=== PATIENT | female | born 1950 | race Hispanic/Latino ===

== ENCOUNTER 2018-05-19 14:51 | Emergency (ER) | payer OTHER, MEDICARE ==
[2018-05-19 17:14] LABS: Urine Bacteria <20 /HPF (<20); Urine Culture Reflex Order REFLEXED; Urine RBC TNTC /HPF (NONE SEEN)
--- NOTE | 2018-05-19 17:20 | EDPHYS ---
Physician Documentation [facility] Name: Catrachito Barbosa Age: 68 yrs Sex: Female : 1950 Arrival Date: 05/19/2018 Time: 14:53 Bed 13 Private MD: Robert Phillip V ED Physician Richie Jones HPI: 05/19 17:09 This 68 yrs old Female presents to ER via Ambulatory with complaints of pm1 Urinary Problem. 17:09 Onset: The symptoms/episode began/occurred 3 day(s) ago. Associated signs and symptoms: pm1 Pertinent positives: dysuria, Pertinent negatives: abdominal pain, chest pain, diarrhea, fever, shortness of breath, vomiting, back pain. Modifying factors: The patient symptoms are alleviated by nothing, the patient symptoms are aggravated by urinating. last UTI 4-5 years ago. The patient has not recently seen a physician, the patient's primary care provider is Dr. Phillip. Patient with burning with urination, frequency for the past 3 days. Took Azo and drinking cranberry juice hoping that symptoms with resolve. No fevers, abdominal, or back pain. Historical: - Allergies: 15:32 No Known Allergies; aj - Home Meds: 15:32 carvedilol oral oral [Active]; aj - PMHx: 15:32 Hypertension; aj - PSHx: 15:32 Hysterectomy; Cholecystectomy; aj - Immunization history:: Adult Immunizations up to date. - Social history:: Smoking status: Patient/guardian denies using tobacco. - Ebola Screening: : Patient negative for fever greater than or equal to 101.5 degrees Fahrenheit, and additional compatible Ebola Virus Disease symptoms Patient denies exposure to infectious person Patient denies travel to an Ebola-affected area in the 21 days before illness onset No symptoms or risks identified at this time. ROS: 17:09 Constitutional: Negative for fever, chills, and weight loss, Eyes: Negative for injury, pm1 pain, redness, and discharge, ENT: Negative for injury, pain, and discharge, Neck: Negative for injury, pain, and swelling, Cardiovascular: Negative for chest pain, palpitations, and edema, Respiratory: Negative for shortness of breath, cough, wheezing, and pleuritic chest pain, Abdomen/GI: Negative for abdominal pain, nausea, vomiting, diarrhea, and constipation, Back: Negative for injury and pain. 17:09 MS/Extremity: Negative for injury and deformity, Skin: Negative for injury, rash, and discoloration. 17:09 Neuro: Negative for headache, weakness, numbness, tingling, and seizure. 17:09 : Positive for urinary frequency, small amounts, burning with urination, Negative for pelvic pain, flank pain. Exam: 17:09 Constitutional: This is a well developed, well nourished patient who is awake, alert, pm1 and in no acute distress. Head/Face: Normocephalic, atraumatic. Eyes: Pupils equal round and reactive to light, extra-ocular motions intact. Lids and lashes normal. Conjunctiva and sclera are non-icteric and not injected. Cornea within normal limits. Periorbital areas with no swelling, redness, or edema. ENT: Nares patent. No nasal discharge, no septal abnormalities noted. Tympanic membranes are normal and external auditory canals are clear. Oropharynx with no redness, swelling, or masses, exudates, or evidence of obstruction, uvula midline. Mucous membranes moist. Neck: Trachea midline, no thyromegaly or masses palpated, and no cervical lymphadenopathy. Supple, full range of motion without nuchal rigidity, or vertebral point tenderness. No Meningismus. Chest/axilla: Normal chest wall appearance and motion. Nontender with no deformity. No lesions are appreciated. Cardiovascular: Regular rate and rhythm with a normal S1 and S2. No gallops, murmurs, or rubs. Normal PMI, no JVD. No pulse deficits. Respiratory: Lungs have equal breath sounds bilaterally, clear to auscultation and percussion. No rales, rhonchi or wheezes noted. No increased work of breathing, no retractions or nasal flaring. Abdomen/GI: Soft, non-tender, with normal bowel sounds. No distension or tympany. No guarding or rebound. No evidence of tenderness throughout. Back: No spinal tenderness. No costovertebral tenderness. Full range of motion. Skin: Warm, dry with normal turgor. Normal color with no rashes, no lesions, and no evidence of cellulitis. MS/ Extremity: Pulses equal, no cyanosis. Neurovascular intact. Full, normal range of motion. Vital Signs: 15:32 BP 146 / 80; Pulse 84; Resp 17; Temp 98.3; Pulse Ox 100% on R/A; Weight 92.08 kg; aj Height 5 ft. 7 in. (170.18 cm); 15:32 Body Mass Index 31.79 (92.08 kg, 170.18 cm) aj MDM: 16:24 Patient medically screened. pm1 17:09 Data reviewed: vital signs. Data interpreted: Pulse oximetry: on room air is 100 %. pm1 Interpretation: normal. 17:18 Counseling: I had a detailed discussion with the patient and/or guardian regarding: the pm1 historical points, exam findings, and any diagnostic results supporting the discharge/admit diagnosis, lab results, the need for outpatient follow up, to return to the emergency department if symptoms worsen or persist or if there are any questions or concerns that arise at home. 05/19 16:13 Order name: Urine Microscopic Only; Complete Time: 17:17 tw4 05/19 16:47 Order name: Urine Culture pm1 05/19 16:13 Order name: Urine Dipstick-Ancillary (obtain specimen); Complete Time: 16:43 tw4 Administered Medications: 17:26 Drug: Rocephin (cefTRIAXone) 1 grams Route: IM; Site: left gluteus; sv 17:45 Follow up: Response: No adverse reaction sv Disposition: 05/19/18 17:20 Discharged to Home. Impression: Urinary tract infection, site not specified. - Condition is Stable. - Discharge Instructions: Urinary Tract Infection, Adult. - Prescriptions for Bactrim DS 800- 160 mg Oral Tablet - take 1 tablet by ORAL route every 12 hours for 10 days; 20 tablet. - Medication Reconciliation Form, Thank You Letter, Antibiotic Education form. - Follow up: Emergency Department; When: As needed; Reason: Worsening of condition. Follow up: Robert Phillip MD; When: 2 - 3 days; Reason: Recheck today's complaints, Continuance of care, Re-evaluation by your physician. - Problem is new. - Symptoms have improved. Addendum: 05/23/2018 15:22 Co-signature as Attending Physician, Richie Jones MD. m a2 Signatures: Dispatcher [employer] Sara Sanchez RN RN sv Myers, Amanda, RN RN aj Marinas, Patrick, NP ORACLE TECHNICAL DEVELOPER pm1 Richie Jones MD MD ma2 Bryan Calle MD MD tw4 Corrections: (The following items were deleted from the chart) 05/19 17:16 17:09 : Positive for urinary frequency, small amounts, burning with urination, pm1 Negative for pm1 17:46 17:20 05/19/2018 17:20 Discharged to Home. Impression: Urinary tract infection, site sv not specified. Condition is Stable. Forms are Medication Reconciliation Form, Thank You Letter, Antibiotic Education, Prescription Opioid Use. Follow up: Emergency Department; When: As needed; Reason: Worsening of condition. Follow up: Robert Phillip; When: 2 - 3 days; Reason: Recheck today's complaints, Continuance of care, Re-evaluation by your physician. Problem is new. Symptoms have improved. pm1
--- NOTE | 2018-05-19 17:20 | ER ---
Nurse's Notes [facility] Name: Catrachito Barbosa Age: 68 yrs Sex: Female : 1950 Arrival Date: 05/19/2018 Time: 14:53 Bed 13 Private MD: Robert Phillip V Diagnosis: Urinary tract infection, site not specified Presentation: 05/19 15:30 Presenting complaint: Patient states: Urinary frequency for 4 days with burning with aj urination. Transition of care: patient was not received from another setting of care. Onset of symptoms was May 15, 2018. Risk Assessment: Do you want to hurt yourself or someone else? Patient reports no desire to harm self or others. Initial Sepsis Screen: Does the patient meet any 2 criteria? No. Patient's initial sepsis screen is negative. Does the patient have a suspected source of infection? No. Patient's initial sepsis screen is negative. Care prior to arrival: None. 15:30 Method Of Arrival: Ambulatory aj 15:30 Acuity: NAIDA 4 aj Triage Assessment: 15:32 General: Appears in no apparent distress. comfortable, Behavior is calm, cooperative, aj appropriate for age. Pain: Denies pain. Neuro: Level of Consciousness is awake, alert, obeys commands, Oriented to person, place, time, situation, Appropriate for age. Respiratory: Airway is patent Respiratory effort is even, unlabored, Respiratory pattern is regular, symmetrical. GI: No signs and/or symptoms were reported involving the gastrointestinal system. : Reports burning with urination, incontinence, urgency, urinary frequency. Derm: Skin is intact, is healthy with good turgor, Skin is pink, warm \T\ dry. normal. Historical: - Allergies: 15:32 No Known Allergies; aj - Home Meds: 15:32 carvedilol oral oral [Active]; aj - PMHx: 15:32 Hypertension; aj - PSHx: 15:32 Hysterectomy; Cholecystectomy; aj - Immunization history:: Adult Immunizations up to date. - Social history:: Smoking status: Patient/guardian denies using tobacco. - Ebola Screening: : Patient negative for fever greater than or equal to 101.5 degrees Fahrenheit, and additional compatible Ebola Virus Disease symptoms Patient denies exposure to infectious person Patient denies travel to an Ebola-affected area in the 21 days before illness onset No symptoms or risks identified at this time. Screenin:30 Abuse screen: Denies threats or abuse. Denies injuries from another. Nutritional sv screening: No deficits noted. Tuberculosis screening: No symptoms or risk factors identified. Fall Risk None identified. Assessment: 16:30 General: Appears in no apparent distress. comfortable, well developed, Behavior is sv calm, cooperative, appropriate for age. Neuro: Level of Consciousness is awake, alert, obeys commands, Oriented to person, place, time, situation, Moves all extremities. Full function Gait is steady. Respiratory: Respiratory effort is even, unlabored, Respiratory pattern is regular, symmetrical. : Reports burning with urination. Derm: Skin is pink, warm \T\ dry. 17:27 Reassessment: Patient appears in no apparent distress at this time. No changes from sv previously documented assessment. Patient and/or family updated on plan of care and expected duration. Pain level reassessed. Patient is alert, oriented x 3, equal unlabored respirations, skin warm/dry/pink. 17:45 Reassessment: Patient appears in no apparent distress at this time. No changes from sv previously documented assessment. Patient and/or family updated on plan of care and expected duration. Pain level reassessed. Patient is alert, oriented x 3, equal unlabored respirations, skin warm/dry/pink. Vital Signs: 15:32 BP 146 / 80; Pulse 84; Resp 17; Temp 98.3; Pulse Ox 100% on R/A; Weight 92.08 kg; aj Height 5 ft. 7 in. (170.18 cm); 15:32 Body Mass Index 31.79 (92.08 kg, 170.18 cm) aj ED Course: 14:53 Patient arrived in ED. rg4 14:53 Robert Phillip MD is Private Physician. rg4 15:31 Triage completed. aj 15:32 Arm band placed on left wrist. Patient placed in waiting room, Patient notified of wait aj time. 16:24 Frank Faustin NP is PHCP. pm1 16:24 Richie Jones MD is Attending Physician. pm1 16:25 Sara Stuart, ROSALIA is Primary Nurse. sv 16:30 Patient has correct armband on for positive identification. Bed in low position. Door sv closed. Head of bed elevated. 17:18 Robert Phillip MD is Referral Physician. pm1 17:45 No provider procedures requiring assistance completed. Patient did not have IV access sv during this emergency room visit. Administered Medications: 17:26 Drug: Rocephin (cefTRIAXone) 1 grams Route: IM; Site: left gluteus; sv 17:45 Follow up: Response: No adverse reaction sv Outcome: 17:20 Discharge ordered by MD. pm1 17:45 Discharged to home ambulatory, with family. sv 17:45 Condition: stable 17:45 Discharge instructions given to patient, Instructed on discharge instructions, follow up and referral plans. medication usage, Demonstrated understanding of instructions, follow-up care, medications, Prescriptions given X 1. 17:46 Patient left the ED. sv Addendum: 05/25/2018 18:20 Addendum: Culture Results: Positive urine culture. Bacteria is resistant to, has i w intermediate sensitivity, or is not tested against prescribed antibiotics. Report given to DALILA for further evaluation and then to parcel post officer for follow up with patient. Phone call Attempt #1 pt still having pain with urination, called in Levaquin 500 mg PO daily X 7 days, #7, no refills. Signatures: Sara Stuart, RN Rola Keating RN RN aj Williams, Irene, RN RN iw Marinas, Patrick, NP MAORI LIAISON ADVISER pm1 Brittani Londono4
[2018-05-19] MEDS ORDERED: LIDOCAINE 1% MPF 2 ML AMPULE ONE (17:30)
[2018-05-19] MEDS ORDERED: CEFTRIAXONE 1000 MG/VIAL ONE (17:30)
[2018-05-19 18:02] VITALS: BP 146/80; TEMP 98.3; O2SAT 100
== END 2018-05-19 17:46 | disposition home or self-care (01) ==
LOC: ER 14:51
DX: N39.0 Urinary tract infection, site not specified (principal); I10 Essential (primary) hypertension
CPT/HCPCS: 81015; 87077; 87086; 87088; 87186; 96372; 99283; J2001

== ENCOUNTER 2018-06-12 11:08 | Observation (INO) | payer OTHER, MEDICARE ==
[2018-06-12] MEDS ORDERED: HYDROMORPHONE HCL 1 MG/ML INJ IV PRN (11:42)
[2018-06-12 11:56] VITALS: BMI 30.8
[2018-06-12] MEDS ORDERED: DIPHENHYDRAMINE 25 MG TAB/CAP PO PRN (12:00)
[2018-06-12] MEDS ORDERED: ONDANSETRON 4 MG/2 ML VIAL IV PRN (12:00)
[2018-06-12] MEDS ORDERED: ONDANSETRON 4 MG (ODT) TAB PO PRN (12:00)
[2018-06-12] MEDS ORDERED: LOPERAMIDE HCL 2 MG CAPSULE PO PRN (12:00)
[2018-06-12] MEDS ORDERED: NACHLORIDE 0.45% 1,000 ML IV SCH (12:00)
[2018-06-12] MEDS ORDERED: POLYETHYL GLY 3350 17 GM/DOSE PO PRN (12:00)
[2018-06-12] MEDS ORDERED: ACETAMINOPHEN 325 MG TABLET PO PRN (12:00)
[2018-06-12] MEDS: CIPROFLOXACIN 400mg IV 400 MG/200 ML BAG IV SCH ×2 (12:21→21:35)
[2018-06-12] MEDS ORDERED: PNEUMOCOCCAL VACCINE 0.5 ML IMVAC ONE (13:00)
[2018-06-12 13:10] LABS: Urine Appearance CLEAR; Urine Bilirubin NEGATIVE (NEG); Urine Blood NEGATIVE (NEG); Urine Color YELLOW; Urine Glucose NEGATIVE (NEG); Urine Protein NEGATIVE (NEG); Urine Specific Gravity <=1.005 (1.005-1.030); Urine Urobilinogen 0.2 mg/dL (0.2-1.0); Urine pH 6.5 (5.0-7.0)
[2018-06-12 13:23] LABS: Protime INR 0.96
[2018-06-12] MEDS: METRONIDAZOLE 500mg IVPB 500 MG/100 ML BAG IV SCH ×2 (13:31→21:36)
[2018-06-12 13:37] LABS: Urine Microscopic Reflex NO UMIC
[2018-06-12 13:48] LABS: ALT/SGPT 18 U/L (12-78); AST/SGOT 15 U/L (15-37); Albumin 3.3 g/dL (3.4-5.0); Alkaline Phosphatase 77 U/L (45-117); BUN Blood Urea Nitrogen 11 mg/dL (7-18); Bicarbonate 28 mmol/L (21-32); Bilirubin Direct < 0.1 mg/dL (0-0.2); Bilirubin Total 0.3 mg/dL (0.2-1.0); Glucose Level 81 mg/dL (74-106); Phosphorus 3.2 mg/dL (2.5-4.9); Protein, Total 6.6 g/dL (6.4-8.2); Sodium Level 140 mmol/L (136-145)
--- NOTE | 2018-06-12 15:06 | RAD REPORT ---
EXAM DESCRIPTION: CT - Abdomen Pelvis W Contrast - 06/12/2018 2:53 pm CLINICAL HISTORY: Abdominal pain, left lower quadrant pain COMPARISON: CT study October 2015 TECHNIQUE: Biphasic, helical CT imaging of the abdomen and pelvis was performed following 100 ml non -ionic IV contrast. Oral contrast was given. All CT scans are performed using dose optimization technique as appropriate and may include automated exposure control or mA/KV adjustment according to patient size. FINDINGS: No suspicious findings in the lung bases. The liver, spleen, and pancreas show no suspicious findings. Cholecystectomy clips are present. Bilia ry tree is dilated similar to prior imaging. This is not outside of normal for a post cholecystectomy patient. No history provided to indicate abnormal liver function or biliary obstructive symptoms. Symmetric renal function is seen with no hydronephrosis or suspicious renal mass. No pyelonephritis o r acute parenchymal process. No bladder abnormalities. No adrenal abnormalities. Gastric surgical changes are noted. No dilated bowel. Sigmoid is tortuous and redundant. Diverticulos is is present without measurable diverticulitis. No free air, free fluid or inflammatory stranding. No hernia, mass or bulky lymphadenopathy. Uterus is absent. Ovaries are absent or atrophic. No suspicious bony findings. IMPRESSION: Patient has sigmoid diverticulosis but no measurable diverticulitis. Mild mucosal level inflammatory changes can still be present. No mass, lymphadenopathy, free air or other emergent finding. Biliary tree dilatation believed to be within normal for a post cholecystectomy patient.
--- NOTE | 2018-06-12 15:06 | RAD REPORT ---
EXAM DESCRIPTION: RAD - Chest Pa And Lat (2 Views) - 06/12/2018 2:42 pm CLINICAL HISTORY: Chest pain, abdominal pain COMPARISON: October 2015 TECHNIQUE: PA and lateral views of the chest were obtained. FINDINGS: The lungs are clear. Patient has a mild baseline interstitial prominence likely fibrosis. No failure or volume overload. Heart size is normal and central vasculature is within normal limits. No pleural effusion or pneumothorax seen. No acute bony finding noted. No aortic abnormality. IMPRESSION: No acute cardiopulmonary process. Chest is not clearly different from 2016 comparison.
--- NOTE | 2018-06-12 18:54 | EKG ---
Test Date: 2018-06-12 Test Time: 12:40:33 Nutrition Professor: OLIVIA MEASUREMENT RESULTS: Intervals: Rate: 55 DE: 122 QRSD: 96 QT: 426 QTc: 407 Arnold: P: 46 DE: 122 QRS: 22 T: 12 INTERPRETIVE STATEMENTS: Sinus bradycardia Otherwise normal ECG Compared to ECG 05/06/2015 01:01:20 Sinus rhythm no longer present Electronically Signed On 06-12-18 18:53:26 ASSISTANT PROFESSOR OF ARCHAEOLOGY by Jean Marie Sahu
[2018-06-13] MEDS ORDERED: ENOXAPARIN 40 MG/0.4 ML SQ SCH (09:00)
[2018-06-13] MEDS: CIPROFLOXACIN 400mg IV 400 MG/200 ML BAG IV SCH (09:00)
[2018-06-13] MEDS: METRONIDAZOLE 500mg IVPB 500 MG/100 ML BAG IV SCH (09:00)
--- NOTE | 2018-06-13 09:50 | P.DS ---
Admission Date: 06/12/18 Discharge Date: 06/13/18 Disposition: ROUTINE DISCHARGE Discharge Condition: FAIR Brief History of Present Illness: JACKY IS DOING GREAT AFTER IV ABX. HER PAIN HAS SUBSIDED. SHE WILL GO HOME ON TWO ABX. Vital Signs/Physical Exam: Temp Pulse Resp BP Pulse Ox 97.7 F 59 16 115/56 L 98 06/13/18 04:00 06/13/18 04:00 06/13/18 04:00 06/13/18 04:00 06/13/18 04:00 Laboratory Data at Discharge: WBC 3.6 K/uL (4.3-10.9) L 06/12/18 12:30 Hgb THEATRICAL DRESSER 06/12/18 12:30 Hct THEATRICAL DRESSER 06/12/18 12:30 Plt Count THEATRICAL DRESSER 06/12/18 12:30 PT 11.3 SECONDS (9.5-12.5) 06/12/18 12:30 INR 0.96 06/12/18 12:30 APTT 31.1 SECONDS (24.3-36.9) 06/12/18 12:30 Sodium 140 mmol/L (136-145) 06/12/18 12:30 Potassium 4.0 mmol/L (3.5-5.1) 06/12/18 12:30 BUN 11 mg/dL (7-18) 06/12/18 12:30 Creatinine 0.82 mg/dL (0.55-1.3) 06/12/18 12:30 Glucose 81 mg/dL (74-106) 06/12/18 12:30 Phosphorus 3.2 mg/dL (2.5-4.9) 06/12/18 12:30 Magnesium 2.0 mg/dL (1.8-2.4) 06/12/18 12:30 Total Bilirubin 0.3 mg/dL (0.2-1.0) 06/12/18 12:30 AST 15 U/L (15-37) 06/12/18 12:30 ALT 18 U/L (12-78) 06/12/18 12:30 Alkaline Phosphatase 77 U/L (45-117) 06/12/18 12:30 Home Medications: Aspirin Tab [Ruben Aspirin*] 81 mg PO DAILY 06/12/18 Carvedilol 12.5 mg PO BIDWM 06/12/18 Carvedilol [Coreg*] 12.5 mg PO BIDWM 06/12/18 Cholecalciferol (Vitamin D3) [Vitamin D3] 5,000 unit PO DAILY 06/12/18 Citalopram [Celexa*] 20 mg PO DAILY 06/12/18 Cranberry Fruit Extract/Vit C [Azo Cranberry Softgel] 1 tab PO DAILY 06/12/18 Ferrous Sulfate [Iron] 1 tab PO DAILY 06/12/18 Levothyroxine [Synthroid*] 25 mcg PO [id number] 06/12/18 Magnesium Oxide [Magnesium] 1 tab PO DAILY 06/12/18 Metformin HCl 500 mg PO BID 06/12/18 Sylvester-3/Dha/Epa/Fish Oil [Sylvester 3 500 Softgel] 350 mg PO DAILY 06/12/18 Spironolactone 25 mg PO DAILY 06/12/18 Topiramate [Topamax*] 25 mg PO BID 06/12/18 Ubidecarenone [Co Q-10] 400 mg PO DAILY 06/12/18 Ciprofloxacin HCl [Cipro 500 MG Tablet] 500 mg PO BID #20 tab 06/13/18 metroNIDAZOLE [Flagyl] 250 mg PO Q8H #30 tablet 06/13/18 New Medications: Ciprofloxacin HCl [Cipro 500 MG Tablet] 500 mg PO BID #20 tab metroNIDAZOLE [Flagyl] 250 mg PO Q8H #30 tablet
[2018-06-13 10:26] VITALS: BP 105/64; TEMP 97.9
[2018-06-13 10:41] VITALS: O2SAT 94
== END 2018-06-13 12:03 | disposition home or self-care (01) ==
LOC: 2ND 11:16
PROVIDERS: ADMIT Internal Medicine; ATTEND Internal Medicine
DX: R10.9 Unspecified abdominal pain (principal)
CPT/HCPCS: 36415; 71046; 74177; 80048; 80076; 81003; 82306; 82607; 83735; 84100; 84443; 85025; 85610; 85730; 87040 ×2; 93005; 94760; G0378; G0379; J0744 ×3; J1170; J1650; Q9967

== ENCOUNTER 2019-01-13 12:06 | Observation (INO) | payer OTHER, MEDICARE ==
[2019-01-13] MEDS ORDERED: LOPERAMIDE HCL 2 MG CAPSULE PO PRN (13:00)
[2019-01-13] MEDS ORDERED: POLYETHYL GLY 3350 17 GM/DOSE PO PRN (13:00)
[2019-01-13] MEDS ORDERED: DIPHENHYDRAMINE 25 MG TAB/CAP PO PRN (13:00)
[2019-01-13] MEDS ORDERED: ACETAMINOPHEN 325 MG TABLET PO PRN (13:00)
[2019-01-13] MEDS ORDERED: ONDANSETRON 4 MG/2 ML VIAL IV PRN (13:00)
[2019-01-13] MEDS ORDERED: NACHLORIDE 0.45% 1,000 ML IV SCH (13:00)
[2019-01-13] MEDS ORDERED: ONDANSETRON 4 MG (ODT) TAB PO PRN (13:00)
[2019-01-13 13:19] VITALS: BMI 33.8
[2019-01-13 14:00] LABS: Basophils % 0.7 % (0-1.3); Hematocrit 38.8 % (36.0-45.0); Lymphocytes % 14.8 % (15.3-44.8); MPV 8.8 fL (7.6-11.3); RBC Red Blood Cell Count 4.39 M/uL (3.86-4.86)
--- NOTE | 2019-01-13 14:04 | RAD REPORT ---
EXAM DESCRIPTION: RAD - Chest Pa And Lat (2 Views) - 01/13/2019 1:56 pm CLINICAL HISTORY: CELLULITIS Chest pain. COMPARISON: Chest Pa And Lat (2 Views) dated 06/12/2018; Chest Pa And Lat (2 Views) dated 11/02/2015; C HEST SINGLE VIEW dated 05/06/2015; CHEST SINGLE VIEW dated 08/07/2011 FINDINGS: The lungs are clear. The heart is mildly enlarged in size. No displaced fractures.
[2019-01-13 14:13] LABS: Protime INR 0.96
[2019-01-13] MEDS: HYDROMORPHONE HCL 2 MG/ML inj IV PRN ×2 (14:35→21:33)
[2019-01-13 14:36] LABS: Albumin 3.5 g/dL (3.4-5.0); Bilirubin Direct 0.2 mg/dL (0-0.2); Bilirubin Total 0.6 mg/dL (0.2-1.0); Magnesium 2.1 mg/dL (1.8-2.4); Phosphorus 3.6 mg/dL (2.5-4.9); Protein, Total 7.5 g/dL (6.4-8.2)
[2019-01-13 14:48] LABS: Thyroid Stimulating Hormone 4.6 uIU/mL (0.360-3.740)
[2019-01-13 16:28] LABS: Urine Appearance CLEAR; Urine Bilirubin NEGATIVE (NEG); Urine Blood NEGATIVE (NEG); Urine Color YELLOW; Urine Glucose NEGATIVE (NEG); Urine Protein NEGATIVE (NEG); Urine Urobilinogen 0.2 mg/dL (0.2-1.0)
[2019-01-13 16:29] LABS: Urine Microscopic Reflex NO UMIC
[2019-01-13 16:42] LABS: UR MICROALBUMIN < 0.5 mg/dL (< 1.9)
[2019-01-13] MEDS: dexAMETHasone 4 MG/ML VIAL IV SCH ×2 (19:04→23:39)
--- NOTE | 2019-01-13 19:23 | RAD REPORT ---
EXAM DESCRIPTION: MRI - Shoulder Left Wo Cont - 01/13/2019 6:59 pm CLINICAL HISTORY: Shoulder pain. Cellulitis COMPARISON: None. TECHNIQUE: Axial, sagittal and coronal magnetic resonance imaging left shoulder obtained FINDINGS: Some of the images are degraded by patient motion artifact A complete tear involves the supraspinatus tendon with retraction of the tendon a couple centimeters . Hypertrophic changes involve the AC joint Bicep tendon lies within the bicipital groove demonstrating normal signal. A glenoid labrum tear is not seen. Fluid is present within the subacromion subdeltoid bursa. Small glenohumeral joint effusion. No soft tissue abscess. No evidence of osteomyelitis IMPRESSION: Complete tear of the supraspinatus tendon with retraction of the tendon a few centimeter s medially
--- NOTE | 2019-01-13 19:47 | CON ---
Reason For Consultation: Left shoulder pain status post Pneumovax injection. History Of Present Illness: Ms. Williamson is a 68-year-old woman who has just had a Pneumovax injection yesterday morning. By the afternoon, her arm was swollen and painful and she could not move it. Eric henriquez was admitted to the hospital presumptively without a diagnosis cellulitis. I feel like this is mos t likely a profound allergic reaction to the Pneumovax. There is some deltoid is swollen and red. I am not sure I have anything to offer from an orthopedic standpoint. I would treat her as if she wer e having an allergic reaction to the Pneumovax. This seems to be no intra-articular effusion. Again , I would recommend treating her with steroids or appropriate intervention for the Pneumovax reaction . ARUNA/LIVE Voice ID: [id number] Report ID: [id number]
[2019-01-13] MEDS ORDERED: HOME MED 1 EA UNK (Metformin Hcl [Metformin Hcl] 1,000 MG) PO SCH (21:00)
[2019-01-13] MEDS ORDERED: TOPIRAMATE 25 MG PO SCH (21:00)
[2019-01-13] MEDS ORDERED: CARVEDILOL 12.5 MG PO SCH (21:00)
--- NOTE | 2019-01-13 22:17 | EKG ---
Test Date: 2019-01-13 Test Time: 15:22:04 Staff Educator: IVIS/ MEASUREMENT RESULTS: Intervals: Rate: 59 CT: 122 QRSD: 92 QT: 434 QTc: 429 [place]: P: 53 CT: 122 QRS: 21 T: 25 INTERPRETIVE STATEMENTS: Sinus bradycardia Otherwise normal ECG No previous ECG available for comparison Electronically Signed On 01-13-19 22:16:39 CDT by Frandy Garcia
[2019-01-14 04:55] VITALS: O2SAT 95
[2019-01-14] MEDS: dexAMETHasone 4 MG/ML VIAL IV SCH ×2 (05:02→12:26)
[2019-01-14 05:54] LABS: Absolute Lymphocytes (CBC) 0.5 K/uL (0.7-4.9); Basophils % 0.2 % (0-1.3); Hematocrit 36.6 % (36.0-45.0); Lymphocytes % 7.1 % (15.3-44.8); MPV 8.7 fL (7.6-11.3); RBC Red Blood Cell Count 4.13 M/uL (3.86-4.86)
[2019-01-14 06:05] LABS: Magnesium 1.8 mg/dL (1.8-2.4); Potassium 4.3 mmol/L (3.5-5.1)
[2019-01-14] MEDS ORDERED: LEVOTHYROXINE SOD 0.025 MG TAB PO SCH (07:00)
[2019-01-14] MEDS ORDERED: MAGNESIUM SULFATE 1 gm IVPB 1 GM/100 ML BAG IV ONE (08:00)
[2019-01-14] MEDS ORDERED: UBIDECARENONE 400 MG PO SCH (09:00)
[2019-01-14] MEDS ORDERED: EPA PO SCH (09:00)
[2019-01-14] MEDS ORDERED: CITALOPRAM 20 MG PO SCH (09:00)
[2019-01-14] MEDS ORDERED: VIT C PO SCH (09:00)
[2019-01-14] MEDS ORDERED: OMEGA PO SCH (09:00)
[2019-01-14] MEDS ORDERED: CRANBERRY FRUIT EXTRACT PO SCH (09:00)
[2019-01-14] MEDS ORDERED: HOME MED 1 EA UNK (Spironolactone [Spironolactone] 25 MG) PO SCH (09:00)
[2019-01-14] MEDS ORDERED: HOME MED 1 EA UNK (Cholecalciferol (Vitamin D3) [Vitamin D3] 5,000 UNIT) PO SCH (09:00)
[2019-01-14] MEDS ORDERED: FERROUS SULFATE PO SCH (09:00)
[2019-01-14] MEDS ORDERED: HOME MED 1 EA UNK (Magnesium Oxide [Magnesium] 1 TAB) PO SCH (09:00)
[2019-01-14] MEDS ORDERED: FISH OIL PO SCH (09:00)
[2019-01-14] MEDS ORDERED: ASPIRIN 81 MG PO SCH (09:00)
[2019-01-14] MEDS ORDERED: DHA PO SCH (09:00)
[2019-01-14] MEDS: HYDROMORPHONE HCL 2 MG/ML inj IV PRN (09:11)
[2019-01-14 10:21] LABS: Blood Morphology Comment NOT SEEN (NOT SEEN); Platelet Estimate ADEQ; Urine White Blood Cell Casts OK
[2019-01-14 13:06] VITALS: BP 107/59; TEMP 97.3
--- NOTE | 2019-01-14 18:13 | P.DS ---
Admission Date: 01/13/19 Discharge Date: 01/14/19 Disposition: ROUTINE DISCHARGE Discharge Condition: FAIR Hospital Course: MS. FERRARI HAD SEVERE REACTION TO PNEUMOVAX THAT WAS LOCAL REACTION. HER DELTOID SWOLL AND BECAME VERY FIRM AND INDURATED. STEROIDS IV HELPED. THERE IS NO SIGN OF INFECTION. SHE IS STABLE TO DC HOME. SHE WILL FU WITH DR MEDINA FOR SUPRSPINATUS TENDON TEAR. Vital Signs/Physical Exam: Temp Pulse Resp BP Pulse Ox 97.3 F 63 16 107/59 L 96 01/14/19 12:00 01/14/19 12:00 01/14/19 12:00 01/14/19 12:00 01/14/19 12:00 General: Alert, In no apparent distress HEENT: Atraumatic, PERRLA, EOMI Neck: Supple, JVD not distended Respiratory: Clear to auscultation bilaterally, Normal air movement Cardiovascular: Regular rate/rhythm, Normal S1 S2 Gastrointestinal: Normal bowel sounds, No tenderness Musculoskeletal: No tenderness, Tenderness (L DELTOID, LOT BETTER THAN YESTERDAY.) Integumentary: No rashes Neurological: Normal speech, Normal tone, Normal affect Lymphatics: No axilla or inguinal lymphadenopathy Laboratory Data at Discharge: WBC 6.7 K/uL (4.3-10.9) 01/14/19 05:36 Hgb 12.0 g/dL (12.0-15.0) 01/14/19 05:36 Hct 36.6 % (36.0-45.0) 01/14/19 05:36 Plt Count 186 K/uL (152-406) 01/14/19 05:36 PT 11.4 SECONDS (9.5-12.5) 01/13/19 13:39 INR 0.96 01/13/19 13:39 APTT 31.0 SECONDS (24.3-36.9) 01/13/19 13:39 Sodium 139 mmol/L (136-145) 01/14/19 05:36 Potassium 4.3 mmol/L (3.5-5.1) 01/14/19 05:36 BUN 16 mg/dL (7-18) 01/14/19 05:36 Creatinine 0.78 mg/dL (0.55-1.3) 01/14/19 05:36 Glucose 155 mg/dL (74-106) H 08/22/19 05:36 Phosphorus 3.6 mg/dL (2.5-4.9) 01/13/19 13:39 Magnesium 1.8 mg/dL (1.8-2.4) 01/14/19 05:36 Total Bilirubin 0.6 mg/dL (0.2-1.0) 01/13/19 13:39 AST 13 U/L (15-37) L 01/13/19 13:39 ALT 14 U/L (12-78) 01/13/19 13:39 Alkaline Phosphatase 96 U/L (45-117) 01/13/19 13:39 Home Medications: Carvedilol [Coreg*] 12.5 mg PO BID 06/12/18 Cholecalciferol (Vitamin D3) [Vitamin D3] 5,000 unit PO DAILY 06/12/18 Citalopram [Celexa*] 20 mg PO DAILY 06/12/18 Cranberry Fruit Extract/Vit C [Azo Cranberry Softgel] 1 tab PO DAILY 06/12/18 Ferrous Sulfate [Iron] 1 tab PO DAILY 06/12/18 Levothyroxine [Synthroid*] 25 mcg PO [id number] 06/12/18 Magnesium Oxide [Magnesium] 1 tab PO DAILY 06/12/18 Metformin HCl 1,000 mg PO BID 06/12/18 Fairland-3/Dha/Epa/Fish Oil [[place] 3 500 Softgel] 350 mg PO DAILY 06/12/18 Spironolactone 25 mg PO DAILY 06/12/18 Topiramate [Topamax*] 25 mg PO BID 06/12/18 Ubidecarenone [Co Q-10] 400 mg PO DAILY 06/12/18 Aspirin [Aspir-Low] 81 mg PO DAILY 01/13/19 Methylprednisolone [Medrol dosepack] 4 mg PO DIRECTED #1 iraj 01/14/19 New Medications: Methylprednisolone [Medrol dosepack] 4 mg PO DIRECTED #1 iraj
== END 2019-01-14 12:50 | disposition home or self-care (01) ==
LOC: 2ND 12:15
PROVIDERS: ADMIT Internal Medicine; ATTEND Internal Medicine
DX: T80.62XA Other serum reaction due to vaccination, initial encounter (principal); M75.100 Unspecified rotator cuff tear or rupture of unspecified shoulder, not specified as traumatic; I10 Essential (primary) hypertension; E78.5 Hyperlipidemia, unspecified; E03.9 Hypothyroidism, unspecified; K21.9 Gastro-esophageal reflux disease without esophagitis; E11.9 Type 2 diabetes mellitus without complications; M19.90 Unspecified osteoarthritis, unspecified site; T50.Z95A Adverse effect of other vaccines and biological substances, initial encounter; Y84.8 Other medical procedures as the cause of abnormal reaction of the patient, or of later complication, without mention of misadventure at the time of the procedure
CPT/HCPCS: 93005; 87040 ×2; 85025 ×2; 80048 ×2; 36415 ×2; 83735 ×2; 84100; 85610; 80076; 85730; 84443; 81003; 82570; 84439; 82607; 82306; 82043; 71046; 73221; J1170 ×3; J3475; G0379; G0378